=== PATIENT | male | born 1980 | race Caucasian/White ===

== ENCOUNTER → 2019-02-25 | Outpatient (CLI) | payer OTHER ==
--- NOTE | 2019-02-25 10:25 | REP ---
Clinical: Left wrist pain Technique: AP, lateral, bilateral oblique views. Findings: The carpal bones, surrounding osseous structures, soft tissues, and joint spaces are normal. There is no evidence for acute fracture or dislocation. No subcutaneous emphysema or radiodense foreign body. Impression: Normal wrist series. No acute fracture or dislocation Electronically Signed by Neal Vragas MD 02/25/2019 10:16 A
== END ==
LOC: M RAD 09:33
PROVIDERS: ATTEND Surgery
DX: M25.532 Pain in left wrist (principal)